=== PATIENT | female | born 1975 | race Caucasian/White ===

== ENCOUNTER 2017-04-07 12:21 | Day surgery (SDC) | payer OTHER ==
[~2017-04-07 12:21] MED LIST: DARV PO; PREN0.01 PO
[2017-04-07] MEDS ORDERED: IOHEXOL 300 MG/ML 50 ML BTL (for RAD DIAG) IT ONE (12:22)
[2017-04-07 12:42] VITALS: BP 135/88; PULSE 88; RESP 20; TEMP 98.1; O2SAT 99
[2017-04-07] MEDS ORDERED: TRIAMCINOLONE ACETONIDE 40 MG/ML VIAL ONE (13:19)
[2017-04-07] MEDS ORDERED: BUPIVACAINE HCL PF 0.75% 30 ML VIAL ONE (13:19)
--- NOTE | 2017-04-07 13:39 | PD.RAD ---
Post Procedure Progress Note Pre Procedure Diagnosis: (1) Herniated nucleus pulposus, L5-S1, left Post Procedure Diagnosis: (1) Herniated nucleus pulposus, L5-S1, left Procedure Date: Apr 07, 2017 Supervising Radiologist: Shane Donahue Estimated blood loss: None Anesthesia: Local Plan of Activity Patient to Unit: ROPU Patient Condition: Good Additional Comments: Left L5/S1 TFSI completed without difficulty. Full dictated report to follow. See PACS Report for procedural detail/treatment Shane Donahue MD Apr 07, 2017 13:38
[2017-04-07 13:40] VITALS: BP 133/88; PULSE 81; RESP 18; TEMP 98.3; O2SAT 99
--- NOTE | 2017-04-07 14:00 | RADRPT ---
EXAM DATE/TIME: 04/07/2017 13:14 [facility] COMPARISON: No previous studies available for comparison. INDICATIONS : Patient presents with back pain in need of epidural steroid injection for pain management. MEDICAL HISTORY : N/a SURGICAL HISTORY : Left knee surgery Uterine ablation ENCOUNTER: Initial ACUITY: 3 months PAIN SCORE: 5/10 LOCATION: Lower back and left knee pain. FLUORO TIME: 3.0 minutes IMAGE SERIES: 0 CONTRAST: 0.5 cc Omnipaque (iohexol) 300 ACCESS LEVEL: Left L5-S1 MEDICATIONS: 1.) 1 cc triamcinolone (Kenalog) IA 2.) 1 cc bupivacaine (Marcaine) IA 3.) 1 cc Lidocaine IA RESPONSE: Pre procedure pain level was 5/10. Post procedure pain level was 2/10. Patient was premedicated per protocol for underlying contrast media allergy. PROCEDURE : 1. Fluoroscopically guided epidural injection. The risks, benefits and alternatives to the procedure were explained and verbal and written consent w as obtained. The site was prepped in sterile fashion. Full sterile technique was used, including ca p, mask, sterile gloves and gown and a large sterile sheet. Hand hygiene and 2% chlorhexidine and/or betadine/alcohol prep was utilized per protocol for cutaneous antisepsis. The skin and subcutaneous tissues were infiltrated with local anesthetic solution. With fluoroscopic guidance the left L5/S1 neural foramina was localized. A 25 gauge needle was advanc ed into the foramina and positive contrast was injected to confirm epidural spread. Following this t he prescribed medication was injected surrounding the space. The patient's preprocedure pain and pos t procedure pain levels were recorded. CONCLUSION: Uncomplicated fluoroscopically guided epidural injection as above. Shane Donahue MD on April 07, 2017 at 13:57 Board Certified Radiologist. This report was verified electronically.
== END 2017-04-07 13:55 | disposition home or self-care (01) ==
LOC: HROP 12:21 → HRIP 12:24 → HROP 13:55
PROVIDERS: ATTEND Family Medicine
DX: M51.27 Other intervertebral disc displacement, lumbosacral region (principal)
CPT/HCPCS: 62323; J3301; Q9967